=== PATIENT | male | born 1990 | race Caucasian/White ===

== ENCOUNTER 2017-01-11 07:51 | Inpatient (IN) | payer BC ==
[~2017-01-11] VITALS: Ht 167.6 cm; Wt 83.9 kg
--- NOTE | 2017-01-11 08:03 | NUR ---
PRESENTS SELF TO ED DT DIFFUSED ABDOMINAL PAIN SINCE 1300 YESTERDAY. PT ALSO REPORTED NAUSEA AND VOMITTING. SKIN IS WARM TO TOUCH AND NON DIAPHORETIC. PATIENT IS AFEBRILE. VSS
[2017-01-11] MEDS ORDERED: METRONIDAZOLE 500MG/ NS 100ML 100 ML IV ONE ×2 (08:30→08:39)
[2017-01-11] MEDS ORDERED: IV NS 0.9% 1,000 ML BAG IV ONE ×2 (08:30→10:30)
[2017-01-11] MEDS ORDERED: ONDANSETRON HCL/PF 4 MG/2 ML VIAL IVP ONE ×2 (08:30→10:30)
[2017-01-11] MEDS ORDERED: MORPHINE SULFATE INJ 2 MG/ML DISP.SYRIN IV ONE (08:30)
[2017-01-11] MEDS ORDERED: ONDANSETRON HCL/PF 4 MG/2 ML VIAL ONE ×2 (08:40→10:13)
[2017-01-11] MEDS ORDERED: MORPHINE SULFATE INJ 4 MG/ML DISP.SYRIN ONE (08:40)
[2017-01-11 08:49] LABS: BASOPHILS % (AUTO) 0.2 % (0.0-2.0); EOSINOPHILS % (AUTO) 0.1 % (0.0-6.0); HEMATOCRIT 50 % (39-51); HEMOGLOBIN 17.2 g/dL (13.5-17.5); LYMPHOCYTES # (AUTO) 1.3 /CMM (0.8-4.8); LYMPHOCYTES % (AUTO) 9.8 % (20.0-44.0); MEAN CORPUSCULAR HEMOGLOBIN 31 PG (26.0-33.0); MEAN CORPUSCULAR HGB CONC 35 g/dl (31.0-36.0); MEAN CORPUSCULAR VOLUME 89 fL (80-96); MONOCYTES # (AUTO) 0.8 /CMM (0.1-1.30); MONOCYTES % (AUTO) 5.6 % (2.0-12.0); NEUTROPHILS # (AUTO) 11.3 /CMM (1.8-8.9); NEUTROPHILS % (AUTO) 84.3 % (43.0-81.0); PLATELET COUNT (AUTO) 270 /CMM (150-450); RDW COEFFICIENT OF VARIATION 12.4 (11.5-15.0); RED BLOOD CELL COUNT(AUTO) 5.57 MIL/uL (4.5-6.0); WHITE BLOOD COUNT (AUTO) 13.4 K/uL (4.3-11.0)
[2017-01-11 09:02] LABS: CALCIUM, SERUM 9.3 mg/dL (8.5-10.1); CREATININE 0.9 mg/dL (0.6-1.3)
[2017-01-11 09:08] LABS: ALBUMIN 3.9 g/dL (3.4-5.0); BILIRUBIN,DIRECT 0.1 mg/dL (0.0-0.2); BILIRUBIN,TOTAL 0.8 mg/dL (0.2-1.0); TOTAL PROTEIN, SERUM 7.3 g/dL (6.4-8.2)
[2017-01-11 09:40] LABS: APPEARANCE,URINE Clear (CLEAR); BILIRUBIN,URINE SMALL (NEGATIVE); BLOOD, URINE Trace-intact Ery/uL (NEGATIVE); COLOR,URINE Yellow (YELLOW); KETONES,URINE 80 (NEGATIVE); LEUKOCYTE ESTERASE ,URINE Negative (NEGATIVE); NITRITE, URINE Negative (NEGATIVE); PH,URINE 6.5 (5.0-8.0); PROTEIN,URINE >=300 mg/dl (NEGATIVE); UGLUCOSE 100 MG/DL mg/dL (NEGATIVE); UROBILINOGEN,URINE 0.2 EU/dL (0.2)
[2017-01-11] MEDS ORDERED: IV NS 0.9% 250 ML IV ONE (09:58)
[2017-01-11] MEDS ORDERED: IOHEXOL-300 100 ML VIAL IV ONE (09:58)
--- NOTE | 2017-01-11 10:03 | NUR ---
PT WAS TAKEN TO CT
--- NOTE | 2017-01-11 11:04 | NUR ---
CALLED NURSING HYDROTHERAPIST FOR M/S BED
--- NOTE | 2017-01-11 11:12 | NUR ---
PAGED PIPELINE INTEGRITY ENGINEER FOR PANEL DR LYLE
[2017-01-11 11:26] LABS: BACTERIA,URINE Rare /HPF (None Seen); RBC,URINE 0-2 /HPF (0-2); SQUAMOUS EPITHELIAL CELL,UR Rare /HPF (None Seen); WBC,URINE 0-2 /HPF (0-3)
[2017-01-11] MEDS ORDERED: IV NS 0.9% 1,000 ML IV PRN (11:27)
[2017-01-11] MEDS ORDERED: MORPHINE SULFATE INJ 2 MG/ML DISP.SYRIN IV PRN (11:30)
[2017-01-11] MEDS ORDERED: Z GUARD REMEDY 2 OZ OINT TP PRN (11:30)
[2017-01-11] MEDS ORDERED: ONDANSETRON HCL/PF 4 MG/2 ML VIAL IVP PRN (11:30)
[2017-01-11] MEDS ORDERED: ACETAMINOPHEN 325 MG TABLET PO PRN (11:30)
[2017-01-11] MEDS ORDERED: ZOLPIDEM TARTRATE 5 MG TABLET PO PRN (11:30)
[2017-01-11] MEDS ORDERED: [UNRECOGNIZED DRUG - OTHER] (11:53)
[2017-01-11] MEDS ORDERED: PIPERACILLIN /TAZOBACTAM 3.375 G in IV D5W 50 ML IV SCH (12:00)
--- NOTE | 2017-01-11 12:10 | NUR ---
GAVE REPORT TO SHAZIA LYLE ADMITTING DX APPENDICITIS. NPO.
--- NOTE | 2017-01-11 12:14 | NUR ---
MS RN NOTES PT ARRIVED VIA WHEELCHAIR FROM ER. DX ACUTE APPENDICITIS BY DR. LYLE. AO X 4, ACCOMPANIED BY . C/O ABDOMINAL PAIN 4/10 PAIN SCALE, WAS GIVEN MORPHINE SULFATE 4 MG AT ER EARLIER. STARTED NS AT 7 ML/HR TO RT AC G20, SITE CLEAR. KEPT ON NPO. SLIGHT TENDERNESS TO RT LOWE QUADRANT ON PALPATION. SKIN INTACT, AMBULATORY. UNIT ORIENTATION DONE AND USE OF CALL LIGHT. BED LOW LOCKED. DR. KESSLER FOR SURGICAL CONSULT. WILL CONTINUE TO MONITOR.
--- NOTE | 2017-01-11 12:15 | NUR ---
MS notes: - Patient's admission & physical assessment obtained quickly with 's help. IV was allowed to infused & protonix IV was given as ordered. Patient was transported to OR fully awake, with prior voiding to bathroom, maintained NPO.INSULIN PUMP was informed to OR staff which was still connected to patient which came from home.
[2017-01-11] MEDS ORDERED: BUPIVACAINE MPF W/EPI 0.25% 30 ML VIAL ONE (12:29)
[2017-01-11] MEDS ORDERED: LIDOCAINE 0.5% HCL 50 ML VIAL ONE (12:29)
--- NOTE | 2017-01-11 12:30 | NUR ---
MS RN NOTES SURGICAL CONSENTS AND CHECKLIST GIVEN TO SURGERY NURSE.
[2017-01-11] MEDS ORDERED: FENTANYL PF 250MCG/5ML AMPUL ONE (12:52)
[2017-01-11] MEDS ORDERED: MIDAZOLAM HCL 2 MG/2ML VIAL ONE (12:53)
[2017-01-11] MEDS ORDERED: SUCCINYLCHOLINE CHLORIDE 20 MG/ML VIAL ONE (12:53)
[2017-01-11] MEDS ORDERED: ROCURONIUM BROMIDE 50 MG/5 ML ONE ×2 (12:53→14:37)
[2017-01-11] MEDS: PANTOPRAZOLE 40 MG VIAL IV SCH ×2 (12:57→12:59)
--- NOTE | 2017-01-11 13:02 | NUR ---
MS RN NOTES PATIENT PICKED UP FOR SURGERY.
[2017-01-11 13:56] LABS: INR 0.96 (0.87-1.13); PROTHROMBIN TIME 10.2 SECS (9.5-12.7)
[2017-01-11 14:15] VITALS: BP 144/89
[2017-01-11] MEDS ORDERED: HEMOSTATIC MATRIX 10 ML 1 EACH PAD MC ONE (14:36)
[2017-01-11] MEDS ORDERED: CELLULOSE,OXIDIZED 1 PKT EACH MC ONE (14:38)
[2017-01-11] MEDS ORDERED: FENTANYL PF 100MCG/2ML AMPUL ONE (16:05)
[2017-01-11] MEDS ORDERED: HYDROCODONE/APAP 5/325MG 1 EACH TABLET PO PRN (16:30)
[2017-01-11 17:00] VITALS: BP 141/79
[2017-01-11 17:40] VITALS: BP 137/70
--- NOTE | 2017-01-11 17:40 | NUR ---
MS RN NOTES PATIENT BACK FROM SURGERY. S/P LAP APPY BY DR. KESSLER. 4 CDI SURGICAL DRESSINGS ON ABDOMEN. AO X 4, ON RA, SATTING 98%. NOT IN ANY DISTRESS. DENIES PAIN. ONGOING IVF INFUSING WELL TO RT AC. SITE CLEAR. OH IN PLACE WITH 225 ML URINE OUTPUT REMOVED AT OR. CLEAR LIQUID DIET, ADVANCE TOLERATED. ALL POST OP ORDERS CARRIED OUT. FAMILY AT BEDSIDE. WILL CONT TO MONITOR.
--- NOTE | 2017-01-11 17:50 | NUR ---
MS RN NOTES PER DR. KESSLER TO REMOVE OH CATHETER.
[2017-01-11 18:00] VITALS: BP_SYST 140; BP_SYST 145; BP_DIAS 79; BP_DIAS 84
[2017-01-11 18:30] VITALS: BP 135/69
[2017-01-11] MEDS: IV LR 1000 ML 1,000 ML IV PRN (18:34)
[2017-01-11] MEDS: PIPERACILLIN /TAZOBACTAM 4.5 G in IV D5W 50 ML IV SCH (18:44)
--- NOTE | 2017-01-11 18:50 | NUR ---
MS GREEN NOTES: - Patient tolerated small amounts of jello & tea, claimed pain to be between 1-3 depending on position changes , LR infusing as ordered & Zozyn started as per MD 'S orders, vitals signs closely monitored & recorded. Izquierdo cath removed as per MD's orders, without difficulty & urinal was provided & explained to patient. Dressings at abdomen remained dry & intact. Family at bedside. Addendum: 01/11/17 at 1857 by BRANDI WASSERMAN RN ADDENDUM: ALL NEEDS MET. NO OTHER SIGNIFICANT CHANGE IN CONDITION. WILL ENDORSE TO NEXT SHIFT FOR LEIDA.
[2017-01-11] MEDS: ANCEF 1 GM/50 ML D5W IV SCH ×2 (19:53)
[2017-01-11 20:00] VITALS: BP 140/69
[2017-01-11] MEDS: HYDROMORPHONE 1 MG/1 ML DISP.SYRIN IV PRN (21:00)
[2017-01-11] MEDS: BLOOD SUGAR DIAGNOSTIC 1 EACH STRIP IN SCH (21:54)
[2017-01-12] MEDS: PIPERACILLIN /TAZOBACTAM 4.5 G in IV D5W 50 ML IV SCH ×3 (00:14→12:14)
[2017-01-12] MEDS: ANCEF 1 GM/50 ML D5W IV SCH ×2 (03:04)
[2017-01-12] MEDS: HYDROMORPHONE 1 MG/1 ML DISP.SYRIN IV PRN ×3 (03:12→12:14)
[2017-01-12] MEDS: BLOOD SUGAR DIAGNOSTIC 1 EACH STRIP IN SCH ×2 (06:02→12:14)
[2017-01-12] MEDS: IV LR 1000 ML 1,000 ML IV PRN (06:02)
[2017-01-12 06:35] LABS: BASOPHILS % (AUTO) 0.4 % (0.0-2.0); EOSINOPHILS % (AUTO) 0.3 % (0.0-6.0); HEMATOCRIT 46 % (39-51); HEMOGLOBIN 15.8 g/dL (13.5-17.5); LYMPHOCYTES # (AUTO) 2.1 /CMM (0.8-4.8); LYMPHOCYTES % (AUTO) 19.9 % (20.0-44.0); MEAN CORPUSCULAR HEMOGLOBIN 31 PG (26.0-33.0); MEAN CORPUSCULAR HGB CONC 34 g/dl (31.0-36.0); MEAN CORPUSCULAR VOLUME 91 fL (80-96); MONOCYTES # (AUTO) 0.8 /CMM (0.1-1.30); MONOCYTES % (AUTO) 7.7 % (2.0-12.0); NEUTROPHILS # (AUTO) 7.4 /CMM (1.8-8.9); NEUTROPHILS % (AUTO) 71.7 % (43.0-81.0); PLATELET COUNT (AUTO) 235 /CMM (150-450); RDW COEFFICIENT OF VARIATION 12.7 (11.5-15.0); RED BLOOD CELL COUNT(AUTO) 5.03 MIL/uL (4.5-6.0); WHITE BLOOD COUNT (AUTO) 10.3 K/uL (4.3-11.0)
[2017-01-12 06:47] LABS: ALBUMIN 2.9 g/dL (3.4-5.0); BILIRUBIN,TOTAL 0.7 mg/dL (0.2-1.0); CALCIUM, SERUM 8.5 mg/dL (8.5-10.1); MAGNESIUM 1.9 mg/dL (1.8-2.4); PHOSPHORUS 3.7 mg/dL (2.5-4.9); POTASSIUM 4.9 mmol/L (3.5-5.1); TOTAL PROTEIN, SERUM 6.4 g/dL (6.4-8.2)
--- NOTE | 2017-01-12 06:51 | NUR ---
MS RN NOTES AWAKE & RESPONSIVE. NOT IN ANY DISTRESS. NO SOB NOTED. DENIES ANY PAIN OR DISCOMFORT AT THIS TIME. WITH IVF INFUSING WELL. MONITORED ACCORDINGLY. CALL LIGHT WITHIN REACH. BED IN LOWEST POSITION. SR UP X 2 FOR SAFETY. WILL ENDORSE TO NEXT SHIFT.
--- NOTE | 2017-01-12 07:17 | NUR ---
RN NOTES PT IS AWAKE IN BED, A/OX4. PT SHOWS NO SOB, COMPLAINS OF PAIN FROM ABDOMEN RADIATING TO SHOULDER. IV ON RAC RUNNING LR AT 110 ML/HR. ALL SAFETY MEASURES ARE IN PLACE. WILL CONTINUE TO MONITOR.
[2017-01-12 08:00] VITALS: BP 164/99
[2017-01-12] MEDS ORDERED: CEPH-570 PO (09:58)
--- NOTE | 2017-01-12 12:27 | NUR ---
ACCCUCHECK WAS TAKEN. GLUCOSE LEVEL WAS AT 351. PT COVERED WITH OWN INSULIN PUMP.
--- NOTE | 2017-01-12 13:27 | NUR ---
PT WAS DISCHARGED IN STABLE CONDITION. PT LEFT BY PRIVATE CAR WITH FAMILY. DISCHARGE FORM AND BELONGINGS FORM WAS SIGNED. IVS AND ID BAND WERE REMOVED. DISCHARGE EDUCATION WAS GIVEN. PT WAS TOLD TO FOLLOW UP WITH PCP, PT STATED HE WOULD MAKE APPOINTMENT ON HIS OWN.
== END 2017-01-12 13:25 | disposition home or self-care (01) | DRG 343 ==
LOC: ER 07:51 → MED 12:02
PROVIDERS: ADMIT Internal Medicine; ATTEND Internal Medicine
PROC: 0DTJ4ZZ Resection of Appendix, Percutaneous Endoscopic Approach (ICD-10-PCS; principal; 2017-01-11 14:01)
DX: K35.80 Unspecified acute appendicitis (principal); E10.9 Type 1 diabetes mellitus without complications; Z79.4 Long term (current) use of insulin; Z96.41 Presence of insulin pump (external) (internal)
CPT/HCPCS: 36415; 80048-TC; 80053-TC; 80076-TC; 81000-TC; 82962-TC; 83690-TC; 83735-TC; 84100-TC; 85025-TC; 85610-TC; 86850-TC; 87081-TC; A4606; C9113; J0330; J0690; J1170; J2250; J2270; J2405; J2543; J3010; J3490; J7030; J7050; J7060; J7120; Q9967; Z7610